=== PATIENT | female | born 1995 | race Hispanic/Latino ===

== ENCOUNTER 2023-12-08 17:56 | Inpatient (IN) | payer OTHER ==
[~2023-12-08] VITALS: Ht 154.9 cm; Wt 68.9 kg
[2023-12-08 18:43] LABS: APPEARANCE,URINE CLEAR (CLEAR); BILIRUBIN,URINE NEGATIVE (NEGATIVE); COLOR,URINE YELLOW (YELLOW); GLUCOSE, URINE (UA) NEGATIVE (NEGATIVE); KETONES,URINE NEGATIVE (NEGATIVE); LEUKOCYTE ESTERASE ,URINE 250 Leu/uL (NEGATIVE); NITRATE,URINE NEGATIVE (NEGATIVE); OCCULT BLOOD,URINE NEGATIVE (NEGATIVE); PROTEIN,URINE 10 mg/dL (NEGATIVE); UROBILINOGEN,URINE 0.2 mg/dL (0.2-1.0)
[2023-12-08 18:51] LABS: ADD UA MICROSCOPIC YES
[2023-12-08 18:55] LABS: AMPHET/METH SCREEN,URINE NEGATIVE (NEGATIVE); BACTERIA,URINE RARE /HPF (None Seen); BARBITURATE SCREEN, URINE NEGATIVE (NEGATIVE); BENZODIAZEPINES SCREEN,URINE NEGATIVE (NEGATIVE); CANNABINOID SCREEN,URINE NEGATIVE (NEGATIVE); COCAINE SCREEN,URINE NEGATIVE (NEGATIVE); MUCUS,URINE RARE LPF (None Seen); OPIATE SCREEN,URINE NEGATIVE (NEGATIVE); PHENCYCLIDINE SCREEN,URINE NEGATIVE (NEGATIVE); RBC,URINE 0-1 /HPF (0-1); SQUAMOUS EPITHELIAL CELL,UR FEW /HPF (0-2)
[2023-12-08] MEDS: AMPICILLIN 2GM+NS 100ML 100 ML IV SCH (23:00)
[2023-12-08] MEDS: LACTATED RINGERS 1000ML 1,000 ML IV PRN (23:09)
[2023-12-08 23:18] LABS: HEMATOCRIT 31.6 % (36-48); MEAN CORPUSCULAR HEMOGLOBIN 29.4 pg (27.0-33.0); MEAN CORPUSCULAR HGB CONC 33.5 g/dL (32.0-36.0); MEAN CORPUSCULAR VOLUME 87.8 fL (79-99); RED BLOOD CELL COUNT(AUTO) 3.6 MIL/uL (4.00-5.50); RED CELL DISTRIBUTION WIDTH 12.2 % (11.0-15.5); WHITE BLOOD COUNT (AUTO) 9.1 K/uL (4.8-10.8)
[2023-12-08] MEDS: AMPICILLIN 2GM+NS 100ML 100 ML IV ONE (23:27)
[2023-12-09] LABS: HIV 1&2 ANTIBODY Non-Reactive (Negative); HIV-1 p24 Antigen Non-Reactive (Negative)
[2023-12-09] MEDS: AMPICILLIN 1GM+NS 50ML 50 ML IV SCH (03:33)
[2023-12-09] MEDS ORDERED: DIPHENOXYLATE HCL/ATROPINE 2.5/0.025 MG TAB PO STA (05:18)
[2023-12-09] MEDS ORDERED: EPHEDRINE SULFATE 50 MG/ML AMPULE IVP PRN (10:00)
[2023-12-09] MEDS ORDERED: LACTATED RINGERS 500 ML 500 ML IV PRN (10:00)
[2023-12-09] MEDS ORDERED: NALOXONE HCL 0.4 MG/1 ML ML IV PRN (10:00)
[2023-12-09 11:41] LABS: RAPID PLASMA REAGIN NONREACTIVE (NONREACTIVE)
[2023-12-09] MEDS: LIDOCAINE HCL 1% 20 ML VIAL ONE (19:21)
[2023-12-09] MEDS: OXYTOCIN-LR 30 UNITS/500ML 500 ML IV SCH ×2 (19:37→20:20)
[2023-12-09] MEDS: ROPIVACAINE 0.2% 2MG/ML 100ML VIAL EP SCH (20:20)
[2023-12-09] MEDS ORDERED: DIPH,PERTUSS(ACELL),TET VAC/PF 0.5 ML VIAL IM PRN (20:30)
[2023-12-09] MEDS ORDERED: LANOLIN 30GM OINTMENT TP PRN (20:30)
[2023-12-09] MEDS ORDERED: WITCH HAZEL 1 PAD TP PRN (20:30)
[2023-12-09] MEDS ORDERED: MEASLES/MUMPS/RUBELLA VACCINE, LIVE 0.5 ML/VIAL SQ PRN (20:30)
[2023-12-09] MEDS ORDERED: ACETAMINOPHEN WITH CODEINE 1 TAB TAB PO PRN (20:30)
[2023-12-09] MEDS ORDERED: BENZOCAINE/LANOLIN/ALOE VERA 60 ML AEROSOL TP PRN (20:30)
[2023-12-09] MEDS: IBUPROFEN 600 MG TABLET PO PRN (20:40)
[2023-12-09] MEDS: DOCUSATE SODIUM 100 MG CAP PO SCH (22:02)
[2023-12-09] MEDS: ACETAMINOPHEN 325 MG TAB PO PRN (23:25)
[2023-12-09 23:50] VITALS: BP 105/55; PULSE 83; RESP 20
[2023-12-10 04:09] VITALS: BP 104/64; PULSE 76; RESP 20
[2023-12-10 06:42] LABS: HEMATOCRIT 29.3 % (36-48); MEAN CORPUSCULAR HEMOGLOBIN 29.6 pg (27.0-33.0); MEAN CORPUSCULAR HGB CONC 33.4 g/dL (32.0-36.0); MEAN CORPUSCULAR VOLUME 88.5 fL (79-99); RED BLOOD CELL COUNT(AUTO) 3.31 MIL/uL (4.00-5.50); RED CELL DISTRIBUTION WIDTH 11.9 % (11.0-15.5); WHITE BLOOD COUNT (AUTO) 10.9 K/uL (4.8-10.8)
[2023-12-10 07:59] VITALS: BP 109/63; PULSE 69
[2023-12-10 11:11] VITALS: BP 119/64; PULSE 77
[2023-12-10 16:17] VITALS: BP 111/70; PULSE 72
[2023-12-10 20:10] VITALS: BP 105/58; PULSE 77; RESP 20
[2023-12-10 23:09] VITALS: BP 135/73; PULSE 68; RESP 20
[2023-12-11 03:57] VITALS: BP 120/22; PULSE 66; RESP 20
[2023-12-11 07:45] VITALS: BP 109/71; PULSE 65; RESP 18
[2023-12-11 11:14] VITALS: BP 120/78; PULSE 72; RESP 16
== END 2023-12-11 15:12 | disposition home or self-care (01) | DRG 807 ==
LOC: EDH 17:56 → LDH 17:57 → OBSVTOIN 17:57 → WSH 12-09 23:50
PROVIDERS: ADMIT Obstetrics & Gynecology; ATTEND Obstetrics & Gynecology
PROC: 10E0XZZ Delivery of Products of Conception, External Approach (ICD-10-PCS; principal; 2023-12-08)
PROC: 4A1HXCZ Monitoring of Products of Conception, Cardiac Rate, External Approach (ICD-10-PCS; 2023-12-08)
DX: O80 Encounter for full-term uncomplicated delivery (principal); Z37.0 Single live birth; Z3A.37 37 weeks gestation of pregnancy
CPT/HCPCS: 36415; 76805; 76819; 80305; 81001; 85027; 86592; 86701; 86850; 86900; 86901; 87086; 87340; 87390; 96360; A4314; G0378; J0290; J2795; J7120